=== PATIENT | female | born 1995 | race Two or more races ===

== ENCOUNTER 2022-08-31 18:05 | Emergency (ER) | payer MEDICAID ==
[~2022-08-31] VITALS: Ht 157.5 cm; Wt 47.6 kg
[2022-08-31 18:35] VITALS: BP 121/75
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
[2022-08-31] MEDS ORDERED: FLUORESCEIN SODIUM OPHTH 1 EA STRIP ONE (19:37)
[2022-08-31] MEDS ORDERED: POLY50DR OP (19:47)
[2022-08-31] MEDS ORDERED: FLUORESCEIN SODIUM OPHTH 1 EA STRIP OP ONE (20:00)
== END 2022-08-31 20:41 | disposition home or self-care (01) ==
LOC: ER 18:10
DX: T26.62XA Corrosion of cornea and conjunctival sac, left eye, initial encounter (principal); H53.8 Other visual disturbances; Z79.899 Other long term (current) drug therapy; Y93.89 Activity, other specified; Y92.89 Other specified places as the place of occurrence of the external cause; Y99.8 Other external cause status